=== PATIENT | female | born 1965 | race Caucasian/White ===

== ENCOUNTER 2017-01-04 14:51 | Emergency (ER) | payer SELFPAY ==
[~2017-01-04] VITALS: Ht 160 cm; Wt 68.0 kg
[2017-01-04 15:16] VITALS: BP 113/69
== END 2017-01-04 22:50 | disposition left against medical advice (07) ==
LOC: ER 20:54
DX: Z53.21 Procedure and treatment not carried out due to patient leaving prior to being seen by health care provider (principal)
CPT/HCPCS: Z7610 ×3

== ENCOUNTER 2018-08-18 08:07 | Emergency (ER) | payer MEDICAID, OTHER ==
[~2018-08-18] VITALS: Ht 160 cm; Wt 69.0 kg
[2018-08-18] MEDS ORDERED: ACETAMINOPHEN 325MG TABLET PO ONE (09:00)
[2018-08-18] MEDS ORDERED: HYDROCODONE/ACETAMINOPHEN 5/325MG TABLET PO ONE (10:15)
[2018-08-18 10:21] VITALS: BP 122/87
== END 2018-08-18 10:22 | disposition home or self-care (01) ==
LOC: ER 08:29
DX: M25.561 Pain in right knee (principal); M54.9 Dorsalgia, unspecified; G89.29 Other chronic pain; R03.0 Elevated blood-pressure reading, without diagnosis of hypertension; R20.2 Paresthesia of skin
CPT/HCPCS: 93971; 99284

== ENCOUNTER 2019-04-19 00:24 | Emergency (ER) | payer MEDICAID, OTHER ==
[~2019-04-19] VITALS: Ht 160 cm; Wt 66.0 kg
[2019-04-19] MEDS ORDERED: IBUPROFEN 800MG TABLET PO ONE (03:00)
[2019-04-19 03:35] LABS: CLARITY URINE CLEAR (CLEAR); COLOR URINE YELLOW (YELLOW); KETONES URINE NEGATIVE (NEGATIVE); LEUKOCYTE ESTERASE URINE 1+ (NEGATIVE); NITRITE URINE NEGATIVE (NEGATIVE); OCCULT BLOOD URINE 1+ (NEGATIVE); PH URINE 5.5 (4.5-8.0); PROTEIN URINE NEGATIVE (NEGATIVE); SPECIFIC GRAVITY URINE 1.028 (1.005-1.030)
[2019-04-19 07:41] VITALS: BP 120/76
== END 2019-04-19 07:44 | disposition home or self-care (01) ==
LOC: ER 00:24
DX: N39.0 Urinary tract infection, site not specified (principal); M54.40 Lumbago with sciatica, unspecified side; L84 Corns and callosities; R20.2 Paresthesia of skin; F12.10 Cannabis abuse, uncomplicated; F14.10 Cocaine abuse, uncomplicated; Z90.710 Acquired absence of both cervix and uterus
CPT/HCPCS: 81003; 99283

== ENCOUNTER 2021-08-12 15:12 | Emergency (ER) | payer OTHER ==
[~2021-08-12] VITALS: Ht 162.6 cm; Wt 68.0 kg
[2021-08-12] MEDS ORDERED: CEFTRIAXONE SODIUM 1 G/VIAL IM ONE (17:30)
[2021-08-12] MEDS ORDERED: LIDOCAINE HCL 1% 20ML VIAL (Pyxis) INJ INFIL ONE (17:30)
[2021-08-12] MEDS ORDERED: ALBU6.7H9 INH (18:28)
[2021-08-12] MEDS ORDERED: AMOX-424 MT (18:28)
[2021-08-12 19:02] VITALS: BP 129/71
== END 2021-08-12 19:05 | disposition home or self-care (01) ==
LOC: EDSTATUS 15:22 → ER 15:32
DX: J18.9 Pneumonia, unspecified organism (principal); Z20.822 Contact with and (suspected) exposure to COVID-19; I10 Essential (primary) hypertension; F14.90 Cocaine use, unspecified, uncomplicated; F12.90 Cannabis use, unspecified, uncomplicated; Z88.5 Allergy status to narcotic agent
CPT/HCPCS: 71045; 87426; 93005; 96372; 99285; J0696; J3490

== ENCOUNTER 2022-02-23 05:38 | Emergency (ER) | payer OTHER ==
[~2022-02-23] VITALS: Ht 170.2 cm; Wt 75.0 kg
[~2022-02-23 05:38] MED LIST: ALBU6.7H9 INH; AMOX-424 MT
[2022-02-23] MEDS ORDERED: ONDANSETRON HCL 4MG/2ML INJ IV STA (06:42)
[2022-02-23 08:09] LABS: EOSINOPHILS % 0.5 % (0.0-5.0); HEMATOCRIT. 39.3 % (36.0-48.0); HEMOGLOBIN. 13.1 g/dL (12.0-16.0); LYMPHOCYTES % 28.8 % (20.0-50.0); MEAN CORPUSCULAR HEMOGLOBIN 29.2 pg (28.0-32.0); MEAN CORPUSCULAR VOLUME 87.8 fL (81.0-99.0); MEAN PLATELET VOLUME 7.4 fl (7.4-10.4); MONOCYTES % 5.4 % (2.0-8.0); NEUTROPHILS % 64.3 % (40.0-76.0); PLATELET 293 x1000/uL (130-400); RED BLOOD CELL COUNT 4.47 mill/uL (4.2-5.4); RED CELL DISTRIBUTION WIDTH 14.2 % (11.6-14.6)
[2022-02-23 08:18] LABS: CHLORIDE 102 mEq/L (98-107)
[2022-02-23 08:26] LABS: ETHANOL BLOOD 164 mg/dL
[2022-02-23] MEDS ORDERED: ONDANSETRON HCL 4MG/2ML INJ IV NR (08:30)
[2022-02-23 08:36] LABS: HCG SCREEN NEGATIVE
[2022-02-23 09:39] LABS: CLARITY URINE CLEAR (CLEAR); COLOR URINE YELLOW (YELLOW); KETONES URINE NEGATIVE (NEGATIVE); LEUKOCYTE ESTERASE URINE NEGATIVE (NEGATIVE); NITRITE URINE NEGATIVE (NEGATIVE); OCCULT BLOOD URINE NEGATIVE (NEGATIVE); PH URINE 5.5 (4.5-8.0); PROTEIN URINE NEGATIVE (NEGATIVE); SPECIFIC GRAVITY URINE 1.009 (1.005-1.030); UROBILINOGEN URINE 0.2 E.U./dL (0.2-1.0)
[2022-02-23 12:47] VITALS: BP 116/66
== END 2022-02-23 12:53 | disposition home or self-care (01) ==
LOC: ER 05:38 → EDUNIT# 05:38 → ER 12:53
DX: F10.129 Alcohol abuse with intoxication, unspecified (principal); Z88.5 Allergy status to narcotic agent; Y90.9 Presence of alcohol in blood, level not specified
CPT/HCPCS: 36415; 70450; 74176; 80053; 80320; 81003; 84703; 85025; 96374; 99284; J2405; G0480

== ENCOUNTER 2022-03-18 13:50 | Emergency (ER) | payer OTHER ==
[~2022-03-18] VITALS: Ht 157.5 cm; Wt 68.0 kg
[2022-03-18 13:54] VITALS: BP 154/101
== END 2022-03-18 22:24 | disposition left against medical advice (07) ==
LOC: ER 13:58
DX: Z53.21 Procedure and treatment not carried out due to patient leaving prior to being seen by health care provider (principal)

== ENCOUNTER 2024-01-09 19:24 | Emergency (ER) | payer MEDICAID, OTHER ==
[~2024-01-09] VITALS: Ht 162.6 cm; Wt 70.0 kg
[~2024-01-09 19:24] MED LIST changes: +ALBU6.7H3 INH; -ALBU6.7H9 INH
[2024-01-09 19:38] VITALS: BP 109/54; PULSE 98; RESP 18; TEMP 98.3; O2SAT 98
[2024-01-09] MEDS ORDERED: LORAZEPAM 0.5MG TABLET PO ONE (20:00)
[2024-01-09] MEDS ORDERED: LORAZEPAM 0.5MG TABLET PO NR (22:45)
== END 2024-01-09 21:00 | disposition left against medical advice (07) ==
LOC: ER 19:24
DX: F41.9 Anxiety disorder, unspecified (principal); Z53.21 Procedure and treatment not carried out due to patient leaving prior to being seen by health care provider

== ENCOUNTER 2024-03-23 18:49 | Emergency (ER) | payer MEDICAID ==
[~2024-03-23] VITALS: Ht 154.9 cm; Wt 61.0 kg
[2024-03-23 18:55] VITALS: BP 116/80; PULSE 100; RESP 14; TEMP 98; O2SAT 98
== END 2024-03-23 19:15 | disposition left against medical advice (07) ==
LOC: ER 18:49
DX: K92.2 Gastrointestinal hemorrhage, unspecified (principal); Z53.21 Procedure and treatment not carried out due to patient leaving prior to being seen by health care provider

== ENCOUNTER 2024-04-11 02:20 | Emergency (ER) | payer MEDICAID ==
[~2024-04-11] VITALS: Ht 162.6 cm; Wt 73.0 kg
[2024-04-11 02:23] VITALS: BP 123/70; PULSE 73; RESP 16; TEMP 97.3; O2SAT 97
[2024-04-11 03:01] VITALS: TEMP 36.94740; O2SAT 99
[2024-04-11] MEDS ORDERED: IBUP-2028 MT (04:18)
[2024-04-11] MEDS ORDERED: DOCU-138 MT (04:18)
[2024-04-11] MEDS ORDERED: CEPH500C2 MT (04:18)
== END 2024-04-11 05:21 | disposition home or self-care (01) ==
LOC: ER 02:20
DX: K62.3 Rectal prolapse (principal); F10.20 Alcohol dependence, uncomplicated; F32.A Depression, unspecified; I10 Essential (primary) hypertension; F17.200 Nicotine dependence, unspecified, uncomplicated; Z90.710 Acquired absence of both cervix and uterus; Z88.5 Allergy status to narcotic agent; Z79.899 Other long term (current) drug therapy; Y90.9 Presence of alcohol in blood, level not specified
CPT/HCPCS: 99283

== ENCOUNTER 2024-07-12 18:36 | Emergency (ER) | payer MEDICAID ==
[~2024-07-12] VITALS: Ht 160 cm; Wt 75.0 kg
[~2024-07-12 18:36] MED LIST changes: +CEPH500C2 MT; +DOCU-138 MT; +IBUP-2028 MT
[2024-07-12 18:38] VITALS: O2SAT 99
[2024-07-12 18:56] VITALS: BP 151/126; PULSE 85; RESP 18; TEMP 98.8; O2SAT 98
[2024-07-12 21:51] LABS: BASOPHILS % 0.8 % (0.0-2.0); EOSINOPHILS % 1.9 % (0.0-5.0); HEMATOCRIT. 38.9 % (36.0-48.0); HEMOGLOBIN. 13.1 g/dL (12.0-16.0); LYMPHOCYTES % 40.2 % (20.0-50.0); MEAN CORPUSCULAR HEMOGLOBIN 29.6 pg (28.0-32.0); MEAN CORPUSCULAR HGB CONC 33.6 g/dL (31.0-37.0); MEAN CORPUSCULAR VOLUME 88.1 fL (81.0-99.0); MEAN PLATELET VOLUME 7.4 fl (7.4-10.4); MONOCYTES % 7.5 % (2.0-8.0); NEUTROPHILS % 49.6 % (40.0-76.0); PLATELET 320 x1000/uL (130-400); RED BLOOD CELL COUNT 4.42 mill/uL (4.2-5.4); RED CELL DISTRIBUTION WIDTH 13.7 % (11.6-14.6); WHITE BLOOD COUNT 6.2 x1000/uL (4.5-11.0)
[2024-07-12 21:55] LABS: CHLORIDE 106 mEq/L (98-107); SODIUM 139 mEq/L (136-145)
[2024-07-12 21:56] LABS: CALCIUM 9.4 mg/dL (8.7-10.4); CARBON DIOXIDE 25 mEq/L (21-32)
[2024-07-12 22:00] LABS: INR 0.9; PROTHROMBIN TIME 10.3 sec (9.6-11.0)
[2024-07-12 22:01] LABS: CREATININE 0.7 mg/dL (0.6-1.0); GLUCOSE 89 mg/dL (70-105); UREA NITROGEN BLOOD 15 mg/dL (9-23)
[2024-07-13] MEDS: IOHEXOL-300 100 ML BOTTLE ONE (01:24)
[2024-07-13] MEDS ORDERED: ACYC200C31 MT (01:34)
[2024-07-13] MEDS ORDERED: POLY119P2 MT (01:34)
== END 2024-07-13 02:07 | disposition home or self-care (01) ==
LOC: ER 18:36
DX: K62.3 Rectal prolapse (principal); I10 Essential (primary) hypertension; K59.00 Constipation, unspecified; B00.9 Herpesviral infection, unspecified; F32.9 Major depressive disorder, single episode, unspecified; F10.20 Alcohol dependence, uncomplicated; Z90.710 Acquired absence of both cervix and uterus; Z88.5 Allergy status to narcotic agent
CPT/HCPCS: 99285; 74177; 80048; 83690; 85025; 85610; 36415; Q9967

== ENCOUNTER 2024-08-20 13:18 | Emergency (ER) | payer MEDICAID ==
[~2024-08-20] VITALS: Ht 165.1 cm; Wt 60.0 kg
[~2024-08-20 13:18] MED LIST changes: +ACYC200C31 MT; +POLY119P2 MT
[2024-08-20 13:21] VITALS: O2SAT 99
[2024-08-20] MEDS ORDERED: NITROFURANTOIN 100MG M/M CAPSULE PO ONE (15:45)
[2024-08-20 16:04] LABS: CLARITY URINE CLOUDY (CLEAR); COLOR URINE YELLOW (YELLOW); GLUCOSE URINE NEGATIVE (NEGATIVE); KETONES URINE TRACE (NEGATIVE); LEUKOCYTE ESTERASE URINE 2+ (NEGATIVE); NITRITE URINE NEGATIVE (NEGATIVE); OCCULT BLOOD URINE NEGATIVE (NEGATIVE); PROTEIN URINE NEGATIVE (NEGATIVE); SPECIFIC GRAVITY URINE 1.018 (1.005-1.030); UROBILINOGEN URINE 0.2 E.U./dL (0.2-1.0)
[2024-08-20 16:19] LABS: BACTERIA URINE 1+; RBC URINE 0-2 /hpf (0-2); SQUAMOUS EPITHELIAL CELL URINE FEW /lpf (RARE/1+)
[2024-08-20] MEDS ORDERED: PYR200 MT (16:38)
[2024-08-20] MEDS ORDERED: NITR-87 MT (16:38)
[2024-08-20] MEDS: PHENAZOPYRIDINE HCL 100MG TABLET PO ONE (16:45)
[2024-08-20] MEDS: NITROFURANTOIN 100MG M/M CAPSULE PO NR (16:45)
[2024-08-20 16:49] VITALS: BP 145/68; PULSE 72; RESP 16; TEMP 37.05852; O2SAT 99
== END 2024-08-20 16:55 | disposition home or self-care (01) ==
LOC: ER 13:18
DX: N39.0 Urinary tract infection, site not specified (principal); E11.9 Type 2 diabetes mellitus without complications; I10 Essential (primary) hypertension; Z90.710 Acquired absence of both cervix and uterus; Z79.624 Long term (current) use of inhibitors of nucleotide synthesis; Z88.5 Allergy status to narcotic agent
CPT/HCPCS: 81003; 99283

== ENCOUNTER 2024-10-06 22:25 | Emergency (ER) | payer MEDICAID ==
[~2024-10-06] VITALS: Ht 160 cm; Wt 65.0 kg
[~2024-10-06 22:25] MED LIST changes: +NITR-87 MT; +PYR200 MT
[2024-10-06 22:30] VITALS: O2SAT 100
[2024-10-06 22:42] VITALS: BP 144/84; PULSE 84; RESP 16; TEMP 36.7; O2SAT 16
== END 2024-10-06 23:57 | disposition home or self-care (01) ==
LOC: ER 22:25
DX: R30.0 Dysuria (principal); Z90.49 Acquired absence of other specified parts of digestive tract; I10 Essential (primary) hypertension; E11.9 Type 2 diabetes mellitus without complications; F32.A Depression, unspecified; Z53.21 Procedure and treatment not carried out due to patient leaving prior to being seen by health care provider
CPT/HCPCS: 99281

== ENCOUNTER 2024-10-11 09:12 | Emergency (ER) | payer MEDICAID ==
[~2024-10-11] VITALS: Ht 162.6 cm; Wt 60.0 kg
[2024-10-11 09:24] VITALS: BP 151/85; PULSE 60; RESP 16; TEMP 36.3; O2SAT 100
[2024-10-11 10:18] LABS: BASOPHILS % 0.7 % (0.0-2.0); HEMATOCRIT. 39.2 % (36.0-48.0); HEMOGLOBIN. 12.6 g/dL (12.0-16.0); LYMPHOCYTES % 37.2 % (20.0-50.0); MEAN CORPUSCULAR HEMOGLOBIN 28.8 pg (28.0-32.0); MEAN CORPUSCULAR HGB CONC 32.1 g/dL (31.0-37.0); MEAN CORPUSCULAR VOLUME 89.8 fL (81.0-99.0); MEAN PLATELET VOLUME 7.7 fl (7.4-10.4); MONOCYTES % 11.8 % (2.0-8.0); NEUTROPHILS % 47.3 % (40.0-76.0); PLATELET 329 x1000/uL (130-400); RED BLOOD CELL COUNT 4.37 mill/uL (4.2-5.4); RED CELL DISTRIBUTION WIDTH 14.5 % (11.6-14.6); WHITE BLOOD COUNT 5.1 x1000/uL (4.5-11.0)
[2024-10-11 10:24] LABS: CHLORIDE 107 mEq/L (98-107); POTASSIUM 4.3 mEq/L (3.5-5.1); SODIUM 139 mEq/L (136-145)
[2024-10-11 10:25] LABS: CALCIUM 8.7 mg/dL (8.7-10.4); CARBON DIOXIDE 26 mEq/L (21-32)
[2024-10-11 10:30] LABS: CREATININE 0.7 mg/dL (0.6-1.0); GLUCOSE 87 mg/dL (70-105); UREA NITROGEN BLOOD 19 mg/dL (9-23)
[2024-10-11 10:38] LABS: CLARITY URINE CLEAR (CLEAR); COLOR URINE YELLOW (YELLOW); GLUCOSE URINE NEGATIVE (NEGATIVE); KETONES URINE NEGATIVE (NEGATIVE); LEUKOCYTE ESTERASE URINE 3+ (NEGATIVE); NITRITE URINE NEGATIVE (NEGATIVE); OCCULT BLOOD URINE NEGATIVE (NEGATIVE); PH URINE 5.5 (4.5-8.0); PROTEIN URINE NEGATIVE (NEGATIVE); SPECIFIC GRAVITY URINE 1.021 (1.005-1.030)
[2024-10-11 10:55] LABS: SQUAMOUS EPITHELIAL CELL URINE 2+ /lpf (RARE/1+)
[2024-10-11 10:56] LABS: BACTERIA URINE 1+; MUCUS URINE TRACE /lpf (< = 2+)
[2024-10-11 10:57] LABS: RBC URINE NONE SEEN /hpf (0-2)
[2024-10-11] MEDS ORDERED: CEPH500C2 MT (11:54)
[2024-10-11] MEDS: CEFTRIAXONE 1GM/50ML 50 ML IV NR (12:08)
== END 2024-10-11 12:09 | disposition home or self-care (01) ==
LOC: ER 09:24
DX: N39.0 Urinary tract infection, site not specified (principal); K80.20 Calculus of gallbladder without cholecystitis without obstruction; M48.061 Spinal stenosis, lumbar region without neurogenic claudication; K57.30 Diverticulosis of large intestine without perforation or abscess without bleeding; E11.9 Type 2 diabetes mellitus without complications; Z79.624 Long term (current) use of inhibitors of nucleotide synthesis; Z88.5 Allergy status to narcotic agent; Z90.710 Acquired absence of both cervix and uterus
CPT/HCPCS: 36415; 74176; 80048; 81003; 85025; 86850; 86900; 93005; 99284

== ENCOUNTER 2024-10-23 14:49 | Emergency (ER) | payer MEDICAID ==
[~2024-10-23] VITALS: Ht 160 cm; Wt 73.0 kg
[2024-10-23 14:55] VITALS: O2SAT 96
[2024-10-23 15:48] LABS: BASOPHILS % 0.7 % (0.0-2.0); EOSINOPHILS % 2.2 % (0.0-5.0); HEMATOCRIT. 36.9 % (36.0-48.0); HEMOGLOBIN. 12.1 g/dL (12.0-16.0); LYMPHOCYTES % 43.1 % (20.0-50.0); MEAN CORPUSCULAR HGB CONC 32.9 g/dL (31.0-37.0); MEAN CORPUSCULAR VOLUME 88.1 fL (81.0-99.0); MEAN PLATELET VOLUME 7.7 fl (7.4-10.4); MONOCYTES % 9.2 % (2.0-8.0); NEUTROPHILS % 44.8 % (40.0-76.0); PLATELET 277 x1000/uL (130-400); RED BLOOD CELL COUNT 4.19 mill/uL (4.2-5.4); RED CELL DISTRIBUTION WIDTH 14.1 % (11.6-14.6); WHITE BLOOD COUNT 4.8 x1000/uL (4.5-11.0)
[2024-10-23 15:56] LABS: CARBON DIOXIDE 26 mEq/L (21-32); CHLORIDE 104 mEq/L (98-107); POTASSIUM 3.5 mEq/L (3.5-5.1); SODIUM 139 mEq/L (136-145)
[2024-10-23 15:57] LABS: CALCIUM 8.8 mg/dL (8.7-10.4)
[2024-10-23 16:01] LABS: CREATININE 0.6 mg/dL (0.6-1.0)
[2024-10-23 16:02] LABS: GLUCOSE 86 mg/dL (70-105); UREA NITROGEN BLOOD 10 mg/dL (9-23)
[2024-10-23 16:03] LABS: ALANINE AMINOTRANSFERASE 20 IU/L (10-49)
[2024-10-23 16:04] LABS: ALBUMIN 3.8 g/dL (3.2-4.8); ASPARTATE AMINOTRANSFERASE 23 IU/L (<34); BILIRUBIN DIRECT 0.2 mg/dL (<=3.0); BILIRUBIN TOTAL 0.5 mg/dL (0.1-1.0)
[2024-10-23 16:46] LABS: CLARITY URINE CLEAR (CLEAR); COLOR URINE YELLOW (YELLOW); GLUCOSE URINE NEGATIVE (NEGATIVE); KETONES URINE NEGATIVE (NEGATIVE); LEUKOCYTE ESTERASE URINE 1+ (NEGATIVE); NITRITE URINE NEGATIVE (NEGATIVE); OCCULT BLOOD URINE NEGATIVE (NEGATIVE); PROTEIN URINE NEGATIVE (NEGATIVE); SPECIFIC GRAVITY URINE 1.004 (1.005-1.030); UROBILINOGEN URINE 0.2 E.U./dL (0.2-1.0)
[2024-10-23] MEDS: KETOROLAC 15MG/ML VIAL IV ONE (17:06)
[2024-10-23] MEDS ORDERED: SENN-362 MT (17:32)
[2024-10-23] MEDS ORDERED: IBUP-2029 MT (17:32)
[2024-10-23] MEDS ORDERED: CEPH500C2 MT (17:32)
[2024-10-23 18:04] VITALS: BP 118/72; PULSE 70; RESP 14; TEMP 37; O2SAT 96
[2024-10-23 19:31] LABS: BACTERIA URINE TRACE; RBC URINE 0-2 /hpf (0-2); SQUAMOUS EPITHELIAL CELL URINE FEW /lpf (RARE/1+)
== END 2024-10-23 18:09 | disposition home or self-care (01) ==
LOC: ER 14:49
DX: K62.3 Rectal prolapse (principal); I10 Essential (primary) hypertension; E11.9 Type 2 diabetes mellitus without complications; F32.A Depression, unspecified; Z88.5 Allergy status to narcotic agent; Z79.899 Other long term (current) drug therapy; Z90.10 Acquired absence of unspecified breast and nipple
CPT/HCPCS: 99283; 96374; 80076; 80048; 81003; 85025; 36415; J1885

== ENCOUNTER 2024-11-23 04:39 | Emergency (ER) | payer MEDICAID ==
[~2024-11-23] VITALS: Ht 160 cm; Wt 77.0 kg
[~2024-11-23 04:39] MED LIST changes: +IBUP-2029 MT; +SENN-362 MT
[2024-11-23 04:47] VITALS: BP 128/90; PULSE 88; RESP 18; TEMP 37.1; O2SAT 99
== END 2024-11-23 05:00 | disposition left against medical advice (07) ==
LOC: ER 04:39
DX: R10.9 Unspecified abdominal pain (principal); Z53.21 Procedure and treatment not carried out due to patient leaving prior to being seen by health care provider

== ENCOUNTER 2024-12-08 15:21 | Emergency (ER) | payer MEDICAID ==
[~2024-12-08] VITALS: Ht 167.6 cm; Wt 73.0 kg
[2024-12-08 15:34] VITALS: O2SAT 99
[2024-12-08 16:03] LABS: BASOPHILS % 0.5 % (0.0-2.0); EOSINOPHILS % 0.6 % (0.0-5.0); HEMATOCRIT. 37.5 % (36.0-48.0); HEMOGLOBIN. 12.4 g/dL (12.0-16.0); MEAN CORPUSCULAR HEMOGLOBIN 28.7 pg (28.0-32.0); MEAN PLATELET VOLUME 7.3 fl (7.4-10.4); MONOCYTES % 8.3 % (2.0-8.0); NEUTROPHILS % 69.6 % (40.0-76.0); PLATELET 304 x1000/uL (130-400); RED BLOOD CELL COUNT 4.31 mill/uL (4.2-5.4); RED CELL DISTRIBUTION WIDTH 14.1 % (11.6-14.6); WHITE BLOOD COUNT 9.5 x1000/uL (4.5-11.0)
[2024-12-08 16:15] LABS: CHLORIDE 104 mEq/L (98-107); POTASSIUM 4.3 mEq/L (3.5-5.1); SODIUM 137 mEq/L (136-145)
[2024-12-08 16:16] LABS: CALCIUM 8.9 mg/dL (8.7-10.4); CARBON DIOXIDE 21 mEq/L (21-32)
[2024-12-08 16:21] LABS: ETHANOL BLOOD < 10 mg/dL (<10); GLUCOSE 79 mg/dL (70-105); UREA NITROGEN BLOOD 20 mg/dL (9-23)
[2024-12-08 20:58] VITALS: BP 127/75; PULSE 69; RESP 13; TEMP 36.7; O2SAT 99
[2024-12-09] MEDS ORDERED: THIA100T72 PO (15:00)
[2024-12-09] MEDS ORDERED: CEPH500C2 MT (15:58)
[2024-12-09] MEDS ORDERED: SENN-362 MT (15:58)
[2024-12-16] MEDS ORDERED: AMOX1TAB16 MT (12:28)
[2024-12-16] MEDS ORDERED: TOPUD MT (12:29)
== END 2024-12-08 21:32 | disposition home or self-care (01) ==
LOC: ER 15:21
DX: G93.40 Encephalopathy, unspecified (principal); I10 Essential (primary) hypertension; Z79.624 Long term (current) use of inhibitors of nucleotide synthesis; Z79.899 Other long term (current) drug therapy; Z88.5 Allergy status to narcotic agent
CPT/HCPCS: 80048; 80320; 82962; 85025; 36415; 93005; 99284; Z7610; A4606; G0480

== ENCOUNTER 2024-12-08 21:32 | Inpatient (IN) | payer MEDICAID ==
[~2024-12-08] VITALS: Ht 160 cm; Wt 66.2 kg
[2024-12-08] MEDS: MECLIZINE 25MG TABLET PO ONE (23:13)
[2024-12-09] MEDS ORDERED: ACETAMINOPHEN 325MG TABLET PO PRN (01:00)
[2024-12-09] MEDS ORDERED: DOCUSATE SODIUM 100MG CAPSULE PO PRN (01:00)
[2024-12-09] MEDS ORDERED: GUAIFENESIN 200MG/10ML SUGAR FREE UDC PO PRN (01:00)
[2024-12-09] MEDS ORDERED: CLONIDINE 0.1MG TABLET PO PRN (01:00)
[2024-12-09] MEDS ORDERED: ONDANSETRON HCL 4MG/2ML INJ IV PRN (01:00)
[2024-12-09] MEDS ORDERED: IPRATROPIUM/ALBUTEROL 0.5-3(2.5)MG/3ML NEB HHN PRN (01:00)
[2024-12-09] MEDS: SODIUM CHLORIDE 0.45% 1,000 ML IV ONE (01:15)
[2024-12-09 02:46] VITALS: BP 112/63; PULSE 67; RESP 18; TEMP 36.5
[2024-12-09 07:06] LABS: BASOPHILS % 0.5 % (0.0-2.0); EOSINOPHILS % 1.8 % (0.0-5.0); HEMATOCRIT. 38.8 % (36.0-48.0); HEMOGLOBIN. 12.8 g/dL (12.0-16.0); LYMPHOCYTES % 26.3 % (20.0-50.0); MEAN CORPUSCULAR HEMOGLOBIN 28.8 pg (28.0-32.0); MEAN CORPUSCULAR HGB CONC 33.1 g/dL (31.0-37.0); MEAN CORPUSCULAR VOLUME 86.8 fL (81.0-99.0); MEAN PLATELET VOLUME 7.6 fl (7.4-10.4); MONOCYTES % 11.5 % (2.0-8.0); NEUTROPHILS % 59.9 % (40.0-76.0); PLATELET 309 x1000/uL (130-400); RED BLOOD CELL COUNT 4.47 mill/uL (4.2-5.4); RED CELL DISTRIBUTION WIDTH 14.3 % (11.6-14.6); WHITE BLOOD COUNT 6.8 x1000/uL (4.5-11.0)
[2024-12-09 07:10] LABS: CARBON DIOXIDE 24 mEq/L (21-32); CHLORIDE 107 mEq/L (98-107); POTASSIUM 4.3 mEq/L (3.5-5.1); SODIUM 139 mEq/L (136-145)
[2024-12-09 07:16] LABS: CREATINE KINASE 147 IU/L (34-145); CREATININE 0.9 mg/dL (0.6-1.0); GLUCOSE 79 mg/dL (70-105); UREA NITROGEN BLOOD 22 mg/dL (9-23)
[2024-12-09 08:00] VITALS: BP 119/67; PULSE 65; RESP 18; TEMP 36.4; O2SAT 98
[2024-12-09] MEDS: THIAMINE HCL 100MG TABLET PO SCH (08:40)
[2024-12-09] MEDS: PANTOPRAZOLE 40MG DR TABLET PO SCH (08:40)
[2024-12-09 08:50] LABS: PROTHROMBIN TIME 10.5 sec (9.6-11.0)
[2024-12-09 12:00] VITALS: BP 151/67; PULSE 58; RESP 18; TEMP 36.6; O2SAT 99
[2024-12-09] MEDS: ENOXAPARIN 80MG/0.8ML SYR SUBCUT SCH (12:48)
[2024-12-09] MEDS ORDERED: THIA100T72 PO (15:00)
[2024-12-09 15:47] VITALS: BP 141/70; PULSE 60; TEMP 97.6; O2SAT 98
[2024-12-09] MEDS ORDERED: SENN-362 MT (15:58)
[2024-12-09] MEDS ORDERED: CEPH500C2 MT (15:58)
[2024-12-09 16:00] VITALS: BP 141/70; PULSE 60; RESP 18; TEMP 36.2; O2SAT 98
[2024-12-09 17:09] LABS: CREATINE KINASE 132 IU/L (34-145)
== END 2024-12-09 17:55 | disposition home or self-care (01) | DRG 52 ==
LOC: ER 21:32 → EDBEDREQ 23:17 → 7WST 12-09 00:15 → EDBEDREQ 12-09 00:24 → ENRESERV 12-09 01:14
PROVIDERS: ADMIT Hospitalist; ATTEND Hospitalist
DX: G93.40 Encephalopathy, unspecified (principal); R62.7 Adult failure to thrive; F10.10 Alcohol abuse, uncomplicated; K59.09 Other constipation; I10 Essential (primary) hypertension; F17.210 Nicotine dependence, cigarettes, uncomplicated; Z68.25 Body mass index [BMI] 25.0-25.9, adult; Z85.048 Personal history of other malignant neoplasm of rectum, rectosigmoid junction, and anus; Z79.899 Other long term (current) drug therapy; Z85.43 Personal history of malignant neoplasm of ovary; Z88.5 Allergy status to narcotic agent
CPT/HCPCS: 36415; 80048; 82550; 85025; 93005; 93970; 97162; 97166; 99285; A4606; J1650; J8597

== ENCOUNTER 2025-03-14 22:19 | Inpatient (IN) | payer MEDICAID ==
[~2025-03-14] VITALS: Ht 167.6 cm; Wt 65.8 kg
[~2025-03-14 22:19] MED LIST changes: -AMOX-424 MT; +AMOX1TAB16 MT; -CEPH500C2 MT; -IBUP-2028 MT; -IBUP-2029 MT; -NITR-87 MT; -PYR200 MT; +THIA100T72 PO; +TOPUD MT
[2025-03-14 22:30] VITALS: O2SAT 97
[2025-03-14 23:41] LABS: BASOPHILS % 0.5 % (0.0-2.0); EOSINOPHILS % 1.1 % (0.0-5.0); HEMATOCRIT. 36.6 % (36.0-48.0); HEMOGLOBIN. 12.3 g/dL (12.0-16.0); LYMPHOCYTES % 32.0 % (20.0-50.0); MEAN PLATELET VOLUME 7.7 fl (7.4-10.4); MONOCYTES % 8.4 % (2.0-8.0); NEUTROPHILS % 58.0 % (40.0-76.0); PLATELET 328 x1000/uL (130-400); RED BLOOD CELL COUNT 4.25 mill/uL (4.2-5.4); RED CELL DISTRIBUTION WIDTH 13.9 % (11.6-14.6)
[2025-03-14] MEDS: SODIUM CHLORIDE 0.9% 1,000 ML IV ONE (23:43)
[2025-03-14] MEDS: ONDANSETRON HCL 4MG/2ML INJ IV ONE (23:43)
[2025-03-14 23:57] LABS: CREATININE 0.8 mg/dL (0.6-1.0)
[2025-03-14 23:58] LABS: ETHANOL BLOOD < 10 mg/dL (<10); HCG SCREEN NEGATIVE; TROPONIN I HIGH SENSITIVITY 4 ng/L (3.0-34); UREA NITROGEN BLOOD 20 mg/dL (9-23)
[2025-03-14 23:59] LABS: ASPARTATE AMINOTRANSFERASE 22 IU/L (<34)
[2025-03-15] LABS: BILIRUBIN DIRECT 0.3 mg/dL (<=3.0); BILIRUBIN TOTAL 0.8 mg/dL (0.1-1.0); PROTEIN TOTAL 7.5 g/dL (6.0-8.3)
[2025-03-15 00:02] LABS: BG BASE EXCESS -3.7 mmol/L (-2.0-3.0); BG CARBOXYHEMOGLOBIN 1.2 % (0.5-1.5); BG DEOXYHEMOGLOBIN 3.6 % (0.0-5.0); BG HCO3 ACT 20.6 mmol/L (21.0-28.0); BG METHEMOGLOBIN 0.1 % (0.5-1.5); BG OXYGEN SATURATION 96.4 % (94.0-98.0); BG OXYHEMOGLOBIN 95.1 % (94.0-98.0); BG PCO2 35.1 mmHg (32.0-45.0); BG PH 7.387 (7.350-7.450); BG PO2 83.8 mmHg (83.0-108.0); BG TOTAL HEMOGLOBIN 12.5 g/dL (12.0-16.0); BG VENT MODE ROOM AIR
[2025-03-15 01:01] LABS: CLARITY URINE CLEAR (CLEAR); COLOR URINE YELLOW (YELLOW); GLUCOSE URINE NEGATIVE (NEGATIVE); KETONES URINE NEGATIVE (NEGATIVE); LEUKOCYTE ESTERASE URINE NEGATIVE (NEGATIVE); NITRITE URINE NEGATIVE (NEGATIVE); OCCULT BLOOD URINE 3+ (NEGATIVE); PH URINE 5.5 (4.5-8.0); PROTEIN URINE NEGATIVE (NEGATIVE); SPECIFIC GRAVITY URINE 1.010 (1.005-1.030); UROBILINOGEN URINE 0.2 E.U./dL (0.2-1.0)
[2025-03-15 01:19] LABS: *AMPHETAMINES SCREEN URINE PRESUMPTIVE POSITIVE (NEGATIVE); *BARBITURATES SCREEN URINE NEGATIVE (NEGATIVE); *BENZODIAZEPINES SCREEN URINE NEGATIVE (NEGATIVE); *COCAINE SCREEN URINE NEGATIVE (NEGATIVE); CANNABINOID URINE SCREEN NEGATIVE (NEGATIVE); ECSTASY MDMA SCREEN URINE CONF.TEST INDICATED (NEGATIVE); METHADONE URINE SCREEN NEGATIVE (NEGATIVE); OPIATES URINE SCREEN NEGATIVE (NEGATIVE); PHENCYCLIDINE URINE SCREEN NEGATIVE (NEGATIVE)
[2025-03-15 01:59] LABS: TROPONIN I HIGH SENSITIVITY < 4 ng/L (3.0-34)
[2025-03-15] MEDS: LORAZEPAM 2MG/ML UD SYRINGE IM NR (02:25)
[2025-03-15] MEDS: HALOPERIDOL LACTATE 5MG/ML VIAL IM NR (02:25)
[2025-03-15] MEDS: DIPHENHYDRAMINE 50MG/ML VIAL IM NR (02:26)
[2025-03-15] MEDS: KETAMINE HCL 50 MG/ML 10ML IM ONE (03:00)
[2025-03-15] MEDS ORDERED: IPRATROPIUM/ALBUTEROL 0.5-3(2.5)MG/3ML NEB HHN PRN (03:15)
[2025-03-15] MEDS ORDERED: HYDRALAZINE 20MG/ML VIAL IV PRN (03:15)
[2025-03-15] MEDS ORDERED: DOCUSATE SODIUM 100MG CAPSULE PO PRN (03:15)
[2025-03-15] MEDS ORDERED: LORAZEPAM 2MG/ML UD SYRINGE IV PRN (03:15)
[2025-03-15] MEDS ORDERED: CLONIDINE 0.1MG TABLET PO PRN (03:15)
[2025-03-15] MEDS ORDERED: LORAZEPAM 0.5MG TABLET PO PRN (03:15)
[2025-03-15] MEDS ORDERED: GUAIFENESIN 200MG/10ML SUGAR FREE UDC PO PRN (03:15)
[2025-03-15] MEDS ORDERED: ACETAMINOPHEN 325MG TABLET PO PRN ×2 (03:15)
[2025-03-15] MEDS ORDERED: ONDANSETRON HCL 4MG/2ML INJ IV PRN (03:15)
[2025-03-15] MEDS: DEXT 5%/0.45% NACL 1000ML 1,000 ML IV SCH ×2 (04:23→12:22)
[2025-03-15 04:40] VITALS: BP 98/57; PULSE 59; RESP 16; TEMP 36.5292
[2025-03-15 04:41] LABS: SQUAMOUS EPITHELIAL CELL URINE FEW /lpf (RARE/1+)
[2025-03-15 04:43] LABS: RBC URINE 15-25 /hpf (0-2); WBC URINE 0-2 /hpf (0-2)
[2025-03-15 04:45] LABS: BACTERIA URINE TRACE
[2025-03-15] MEDS ORDERED: DEXTROSE 50% WATER 50ML SYRINGE IV PRN (06:00)
[2025-03-15] MEDS: BLOOD SUGAR DIAGNOSTIC STRIP TEST SCH (06:53)
[2025-03-15 07:22] LABS: CREATININE 0.7 mg/dL (0.6-1.0); UREA NITROGEN BLOOD 17 mg/dL (9-23)
[2025-03-15 07:45] LABS: BASOPHILS % 0.4 % (0.0-2.0); EOSINOPHILS % 0.4 % (0.0-5.0); HEMATOCRIT. 35.8 % (36.0-48.0); HEMOGLOBIN. 11.9 g/dL (12.0-16.0); LYMPHOCYTES % 23.8 % (20.0-50.0); MEAN PLATELET VOLUME 7.7 fl (7.4-10.4); MONOCYTES % 9.9 % (2.0-8.0); NEUTROPHILS % 65.5 % (40.0-76.0); PLATELET 292 x1000/uL (130-400); RED BLOOD CELL COUNT 4.14 mill/uL (4.2-5.4); RED CELL DISTRIBUTION WIDTH 13.6 % (11.6-14.6)
[2025-03-15 08:00] VITALS: BP 130/77; PULSE 130; RESP 18; TEMP 36.4; O2SAT 100
[2025-03-15] MEDS: ENOXAPARIN 40MG/0.4ML SYR SUBCUT SCH (08:23)
[2025-03-15] MEDS: AMLODIPINE 5MG TABLET PO SCH (08:32)
[2025-03-15 12:00] VITALS: BP 121/70; PULSE 63; RESP 18; TEMP 36.7; O2SAT 100
[2025-03-15] MEDS ORDERED: SODIUM CHLORIDE 0.9% 500 ML IV NR (13:15)
[2025-03-15 16:00] VITALS: BP 133/70; PULSE 67; RESP 15; TEMP 36.7; O2SAT 100
[2025-03-15 20:00] VITALS: BP 129/75; PULSE 65; RESP 18; TEMP 37.4; O2SAT 99
[2025-03-16] VITALS (7 sets, daily range): BP systolic 100–124; BP diastolic 60–80; PULSE 59–64; RESP 16–18; TEMP 36.3–36.7; O2SAT 97–99
[2025-03-16] MEDS: FAMOTIDINE 20MG TABLET PO SCH (06:19)
[2025-03-16 07:12] LABS: CREATININE 0.6 mg/dL (0.6-1.0); UREA NITROGEN BLOOD 12 mg/dL (9-23)
[2025-03-16 07:14] LABS: PHOSPHORUS 2.9 mg/dL (2.5-4.9)
[2025-03-16] MEDS: KCL 20MEQ/100ML PREMIX 100 ML IV SCH (09:25)
[2025-03-16] MEDS ORDERED: AMLO5TAB88 PO (09:25)
[2025-03-16] MEDS: POTASSIUM CHLORIDE 20MEQ TABLET SR PO NR (11:03)
== END 2025-03-16 16:16 | disposition home or self-care (01) | DRG 812 ==
LOC: ER 22:19 → 5WST 03-15 01:51 → EDBEDREQTM 03-15 02:10 → EDBEDREQ 03-15 02:10 → EDBEDREQDT 03-15 02:10 → ENRESERV 03-15 02:19 → 5WST 03-15 03:58
PROVIDERS: ADMIT Hospitalist; ATTEND Hospitalist
DX: T43.621A Poisoning by amphetamines, accidental (unintentional), initial encounter (principal); G92.8 Other toxic encephalopathy; M62.82 Rhabdomyolysis; C55 Malignant neoplasm of uterus, part unspecified; I10 Essential (primary) hypertension; F15.129 Other stimulant abuse with intoxication, unspecified; E11.9 Type 2 diabetes mellitus without complications; F41.9 Anxiety disorder, unspecified; F32.A Depression, unspecified; F17.210 Nicotine dependence, cigarettes, uncomplicated; Z59.00 Homelessness unspecified; Z88.5 Allergy status to narcotic agent
CPT/HCPCS: 36415; 36600; 80048; 80076; 80305; 80307; 80320; 80329; 81003; 82140; 82375; 82550; 82805; 82962; 83036; 83735; 84100; 84484; 84703; 85025; 93970; 96361; 96374; 97166; 99291; J1200; J1630; J1650; J2060; J2405; J3480; J7030; G0480